=== PATIENT | male | born 1950 | race Caucasian/White ===

== ENCOUNTER 2017-11-23 14:33 | Inpatient (IN) | payer MEDICARE, OTHER, SELFPAY ==
[2017-11-23] VITALS (10 sets, daily range): BP systolic 102–139; BP diastolic 61–89; PULSE 76–100; RESP 17–29; TEMP 36.8–37.1; O2SAT 95–99
--- NOTE | 2017-11-23 14:46 | ED.GENADUL ---
Disposition Clinical Impression: Bacteremia Disposition: [facility] INPATIENT Condition: Serious Medical Decision Making - Medical Decision Making 15:08 --67-year-old male with history of ileostomy, seen here yesterday for chills and rigors that started suddenly, blood cultures growing gram negative rods in aerobic bottle. Patient is mildly tachycardic. Normotensive. Feeling better compared to yesterday. Afebrile. We will start Zosyn IV. Plan is to admit for IV antibiotics. I called and spoke with Dr. Macdonald who will admit the patient. Bridging orders requested and will be placed. Labs pending at time of admission. Of note CT imaging of the abdomen from yesterday reveals mild bilateral perinephric fat stranding new since 2013. UA neg yesterday. No dysuria. History of Present Illness - General Chief complaint: Fever Stated complaint: PR. DR. MOSHER REQUEST Time Seen by Provider: 11/23/17 14:45 Source: patient, RN notes reviewed Mode of arrival: ambulatory Limitations: no limitations - History of Present Illness Initial comments: 67-year-old male with history of ileostomy initially placed 19 years ago and has been subsequently revised here for positive blood cultures. Patient was seen here yesterday evening after becoming suddenly unwell at home. He notes that he was quite active during the day yesterday and then in the evening he suddenly developed shaking chills, nausea and diffuse body achiness. In the emergency department labs were drawn, blood cultures were drawn, he had a CT of the abdomen pelvis that was nondiagnostic, he received IV fluids and was feeling better and was discharged home. Today blood cultures are growing gram-negative rods aerobic bottle. I called and spoke with him and advised him to come to the emergency department. He notes that he has been feeling better compared to yesterday. Denies continued chills today. He has been using Tylenol. No associated headache or abdominal pain. No dysuria. - Related Data Ascorbic Acid 500 mg PO DAILY 09/02/12 Aspirin [Aspir 81] 81 mg PO DAILY tab-cap 09/02/12 Multivitamin [Daily Vitamin] 1 each PO DAILY 09/02/12 Tamsulosin HCl [Flomax] 0.4 mg PO DAILY tab 09/02/12 Tadalafil [Cialis] 10 mg PO as directed #30 tab-cap 09/04/12 Magnesium l-Lactate [Mag-Tab Sr] 133 mg PO BID 02/01/13 Sucralfate 1 gm PO PRN PRN 02/06/13 Aclidinium [place] [Tudorza Pressair] 2 puff IH BID 07/09/13 Acetaminophen [Tylenol] 1,000 mg PO PRN PRN 07/10/13 Loratadine/Pseudoephedrine [Claritin-D 24 Hour Tablet] 1 tab-cap PO PRN PRN 07/10/13 Magnesium Calcium And Zinc 133 mg PO DAILY 08/22/13 Potassium Chloride 10 meq PO DAILY #30 tablet.er 10/25/13 Magnesium Oxide 800 mg PO DAILY #60 tab 10/28/13 ClonazePAM [KlonoPIN] 2.5 mg PO HS 11/22/17 Ondansetron ODT [Zofran Odt] 4 mg PO Q6H PRN #10 tabef 11/23/17 Allergies Allergy/AdvReac Type Severity Reaction Status Date / Time ciprofloxacin HCl Allergy anxiety Unverified 11/23/17 14:42 [From Cipro] Sulfa (Sulfonamide AdvReac Mild gi upset Unverified 11/23/17 14:42 Antibiotics) Review of Systems Constitutional: fever (last night as noted) Gastrointestinal: denies: abdominal pain, nausea, vomiting Musculoskeletal: arthralgia (last night) Comment: All other systems reviewed and negative Past Medical History - Past Medical History Medical history: asthma, cancer (prostate), GERD, hyperlipidemia, hypertension Surgical history: herniorraphy, other (Colectomy with ileostomy, eye surgery) - Social History Smoking status: never smoker General Exam - General Limitations: no limitations General appearance: alert, in no apparent distress - Eye Eye exam: Absent: scleral icterus, conjunctival injection - ENT ENT exam: Present: mucous membranes moist - Respiratory Respiratory exam: Present: normal lung sounds bilaterally - Cardiovascular Cardiovascular Exam: Present: regular rate, normal rhythm, normal heart sounds - GI/Abdominal GI/Abdominal exam: Present: soft, normal bowel sounds, other (Ostomy intact and normal appearing). Absent: distended, tenderness, guarding, rebound, rigid - Extremities Exam Extremities exam: Absent: pedal edema - Neurological Exam Neurological exam: Present: alert. Absent: altered - Psychiatric Psychiatric exam: Present: normal affect - Skin Skin exam: Present: warm, dry, intact Course Vital Signs - 24 hr 11/23/17 14:37 Temperature 37.1 C Pulse 100 H Respiratory 18 Rate Blood Pressure 104/61 Pulse Oximetry 96
[2017-11-23 15:33] LABS: Abs Immature Grans 0.17 k/cumm (0.0-0.09); HCT 37.7 % (40.0-50.0); HGB 13.1 g/dL (13.5-17.5); Mean Corp. HGB Concentration 34.7 g/dL (32.0-36.0); Mean Corpuscular Hemoglobin 31.3 pg (27.0-33.0); Mean Platelet Volume 9.6 fL (8.0-11.0); Platelet Count 181 x1000/uL (130-400); RBC 4.19 m/cumm (4.50-6.00); RBC Distribution Width 15.9 % (11.8-14.1)
[2017-11-23 15:48] LABS: Absolute Eosinophil Count 0.27 k/cumm (0.0-0.7); Absolute Monocyte Count 0.27 k/cumm (0.11-0.7); Absolute Neutrophil Count 25.11 k/cumm (1.2-6.7); Atypical Lymphocytes % 0
[2017-11-23 15:49] LABS: White Blood Cell Count 26.71 k/cumm (4.4-10.8)
[2017-11-23 16:00] LABS: ALT 77 U/L (12-78); AST 63 U/L (15-37); Albumin 3.1 g/dL (3.4-5.0); Alkaline Phosphatase 76 U/L (46-116); Anion Gap 9.1 mmol/L (3-11); BUN 30 mg/dL (7-18); Bilirubin, Total 1.2 mg/dL (0.2-1.0); CO2 24.9 mmol/L (21.0-32.0); CREATININE 1.77 mg/dL (0.70-1.30); Calcium 8.8 mg/dL (8.5-10.1); Chloride 103 mmol/L (98-107); Estimated GFR 38.45 (mL/min/1.73m2); Glucose 108 mg/dL (70-100); Potassium 3.9 mmol/L (3.5-5.1); Sodium 137 mmol/L (136-145); Total Protein 6.6 g/dL (6.4-8.2)
[2017-11-23] MEDS: Lactated Ringers 1,000 ML 100 ML IV (17:27)
[2017-11-23] MEDS: Electrolyte SOLUTION,ORAL 1000 ML BTL 480 ML PO (17:50)
[2017-11-23] MEDS: Enoxaparin 30 MG/0.3 ML SYR SC (17:51)
--- NOTE | 2017-11-23 17:58 | PDOC.HP ---
Date of Service: 11/23/17 Time of Service: 17:58 Assessment/Plan - Assessment/Plan (1) Gram-negative bacteremia Assessment: Blood cultures positive for gram-negative rods from the aerobic bottle. At this point it seems to be a gastrointestinal source based on his history of ileostomy, recent exertion, and in the setting of a normal urine. The perinephric stranding is not explained at this time. Plan is empiric therapy with piperacillin/tazobactam directed toward possible enteric pathogens. Given his history of C. difficile colitis, and per patient preference will cover with probiotics. (2) Ileostomy status Assessment: Functioning ileostomy. Appears normal. Continue usual care. (3) Hypomagnesemia Assessment: Continue magnesium replacement. Check level in the a.m. (4) low potassium Assessment: Chronically low potassium levels likely secondary to continuous liquid stool output. Patient takes potassium replacement and Pedialyte on a regular basis. Monitor levels closely. (5) Renal insufficiency Assessment: Creatinine elevated at 1.77. Possibly on the basis of some dehydration. Will have on IV fluids overnight and monitor electrolytes and renal function closely. (6) Discharge planning issues Assessment: Patient is a full code admitted to acute care status. He will need to have his temperature curve monitored closely. Intravenous antibiotics until leukocytosis resolves, fever curve normalizes. Total time arranging his admission 64 minutes. Cc: Dr. Jacobo Burnett. History of Present Illness - History of Present Illness Chief Complaint: Gram-negative bacteremia History of Present Illness: This is a 67-year-old man who was in his usual state of health yesterday when he had a fairly active days physically. In the evening he suddenly developed shaking chills fever and rigors. He self-referred to the emergency room. He was evaluated by Dr. Stewart. He had a temperature of 102?F, white count of 5000, benign exam. He had a CT scan of the abdomen that showed no abnormality. Blood cultures were obtained. Overnight blood cultures turned positive for gram-negative rods. He was called at home stated he felt fine but agreed to come in for IV antibiotics. Today his white count is elevated at 26.7 thousand with 11% bands. Vital signs are stable he is afebrile and states he feels fine. He had an ileostomy placed about 19 years ago as a complication of C. difficile colitis. He had a small bowel obstruction in September 2013. He denies any urinary symptoms. Review of Systems - Review of Systems Constitutional: Fever (Last night), Chills (Last night), Sweats Respiratory: denies: Cough, Shortness of Breath, SOB with Excertion Cardiovascular: denies: Chest Pain, Palpitations Gastrointestinal: denies: Nausea, Vomiting, Abdominal Pain Genitourinary: denies: Dysuria, Frequency, Incontinence Musculoskeletal: denies: Neck Pain Skin: denies: Rash, Lesions Neurological: denies: Weakness - Medications/Allergies Allergies/Adverse Reactions: Allergies Allergy/AdvReac Type Severity Reaction Status Date / Time ciprofloxacin HCl Allergy anxiety Unverified 11/23/17 14:42 [From Cipro] Sulfa (Sulfonamide AdvReac Mild gi upset Unverified 11/23/17 14:42 Antibiotics) Medications: Current Medications Acetaminophen (Tylenol) 650 mg [place] Q4H PRN PRN Acetaminophen (Tylenol) 0 mg PO Q4H PRN PRN Acidophilus/Pectin (Acidophilus) 1 cap PO BID [facility] Aclidinium [place] (Tudorza Pressair) 2 puff IH BID [facility] Al Hydrox/Mg Hydrox/Simethicone (Mylanta Liquid) 30 ml PO Q2H PRN PRN Albuterol Sulfate (Proventil Updraft) 2.5 mg UPD Q2H PRN PRN Aspirin (Ecotrin) 81 mg PO DAILY [facility] Dimethicone/Zinc Oxide (Claudia Protect Cream) 0 gm TP PRN PRN Docusate Sodium (Colace) 100 mg PO TID PRN PRN Enoxaparin Sodium (Lovenox) 30 mg SC Q24H [facility] Last Admin: 11/23/17 17:51 Dose: 30 mg Ringer's Solution () 1,000 mls @ 100 mls/hr IV INFUSION [facility] Last Admin: 11/23/17 17:27 Dose: 100 mls/hr Piperacillin Sod/Tazobactam (Sod 3.375 gm/ Sodium Chloride) 50 mls @ 100 mls/hr IVPB Q6H [facility] IV Miscellaneous Supplies () 1 each IV DIRECTED [facility] Magnesium Hydroxide (Milk Of Magnesia) 30 ml PO DAILY PRN PRN Magnesium Oxide (Mag-Ox 400) 800 mg PO DAILY [facility] Non-Formulary Medication (Clonazepam) 2.5 mg PO HS [facility] Ondansetron HCl (Zofran Odt) 4 mg PO Q6H PRN PRN Reason: Nausea / Vomiting Oral Electrolytes (Pedialyte) 480 ml PO BID@0800,1700 [facility] Last Admin: 11/23/17 17:50 Dose: 480 ml Polyethylene Glycol (Miralax) 17 gm PO DAILY PRN PRN PRN Reason: Constipation Potassium Chloride (K-Dur) 10 meq PO DAILY [facility] Sodium Chloride (Saline Flush 10 Ml Syringe) 0 ml IVP PRN PRN Tamsulosin HCl (Flomax) 0.4 mg PO DAILY [facility] Objective - Exam Vitals and I&O: Vital Signs Temp 37.0 C 11/23/17 16:04 Pulse 83 11/23/17 16:04 Resp 17 11/23/17 16:04 BP 139/89 11/23/17 16:04 Pulse Ox 99 11/23/17 16:04 Intake & Output 11/22/17 11/23/17 11/23/17 23:59 11:59 23:59 Weight 69.4 kg General: Alert, Oriented x3, Cooperative, No acute distress Neck: Supple. denies: JVD Lungs: Clear to auscultation, Normal air movement Cardiovascular: Regular rate, Normal S1. denies: Murmurs Abdomen: Normal bowel sounds, Soft, Other (Ileostomy site pink, normal brown appearing liquid discharge, no surrounding swelling or abnormality). denies: Tenderness Extremities: Normal pulses. denies: Clubbing, Cyanosis, Edema Skin: denies: Rashes, Breakdown, Significant lesion Neurological: Normal speech, Strength at 5/5 X4 ext Psych/Mental Status: Mental status NL Results - Laboratory Data Result Diagrams: 11/23/17 15:15 11/23/17 15:15 Laboratory Results: Laboratory Tests 11/23/17 11/23/17 15:15 15:15 WBC 26.71 H* D RBC 4.19 L Hgb 13.1 L Hct 37.7 L MCV 90.0 MCH 31.3 MCHC 34.7 RDW 15.9 H Plt Count 181 MPV 9.6 Immature Gran % 0.0 Neutrophils % 83.0 Lymphocytes % 3.0 Monocytes % 1.0 Eosinophils % 1.0 Basophils % 0.0 Absolute Neutrophils 25.11 H Band Neutrophils 11.0 Absolute Lymphocytes 0.80 L Absolute Monocytes 0.27 Absolute Eosinophils 0.27 Absolute Basophils 0.00 Metamyelocytes 1.0 Atypical Lymphocytes 0 Sodium 137 Potassium 3.9 Chloride 103 Carbon Dioxide 24.9 Anion Gap 9.1 BUN 30 H Creatinine 1.77 H Estimated GFR/1.73 m2 38.45 Glucose 108 H Calcium 8.8 Total Bilirubin 1.2 H AST 63 H ALT 77 Alkaline Phosphatase 76 Total Protein 6.6 Albumin 3.1 L - Imaging Studies Imaging Studies: CT of the abdomen showed some perinephric stranding otherwise normal. Chest x-ray showed no infiltrate or abnormality. Urinalysis completely normal.
--- NOTE | 2017-11-23 18:01 | PDOC.HP_ITS ---
Date of Service: 11/23/17 Time of Service: 17:58 Assessment/Plan - Assessment/Plan (1) Gram-negative bacteremia Assessment: Blood cultures positive for gram-negative rods from the aerobic bottle. At this point it seems to be a gastrointestinal source based on his history of ileostomy, recent exertion, and in the setting of a normal urine. The perinephric stranding is not explained at this time. Plan is empiric therapy with piperacillin/tazobactam directed toward possible enteric pathogens. Given his history of C. difficile colitis, and per patient preference will cover with probiotics. (2) Ileostomy status Assessment: Functioning ileostomy. Appears normal. Continue usual care. (3) Hypomagnesemia Assessment: Continue magnesium replacement. Check level in the a.m. (4) low potassium Assessment: Chronically low potassium levels likely secondary to continuous liquid stool output. Patient takes potassium replacement and Pedialyte on a regular basis. Monitor levels closely. (5) Renal insufficiency Assessment: Creatinine elevated at 1.77. Possibly on the basis of some dehydration. Will have on IV fluids overnight and monitor electrolytes and renal function closely. (6) Discharge planning issues Assessment: Patient is a full code admitted to acute care status. He will need to have his temperature curve monitored closely. Intravenous antibiotics until leukocytosis resolves, fever curve normalizes. Total time arranging his admission 64 minutes. Cc: Dr. Jacobo Burnett. History of Present Illness - History of Present Illness Chief Complaint: Gram-negative bacteremia History of Present Illness: This is a 67-year-old man who was in his usual state of health yesterday when he had a fairly active days physically. In the evening he suddenly developed shaking chills fever and rigors. He self-referred to the emergency room. He was evaluated by Dr. Stewart. He had a temperature of 102 F, white count of 5000 , benign exam. He had a CT scan of the abdomen that showed no abnormality. Blood cultures were obtained. Overnight blood cultures turned positive for gram-negative rods. He was called at home stated he felt fine but agreed to come in for IV antibiotics. Today his white count is elevated at 26.7 thousand with 11% bands. Vital signs are stable he is afebrile and states he feels fine. He had an ileostomy placed about 19 years ago as a complication of C. difficile colitis. He had a small bowel obstruction in September 2013. He denies any urinary symptoms. Review of Systems - Review of Systems Constitutional: Fever (Last night), Chills (Last night), Sweats Respiratory: denies: Cough, Shortness of Breath, SOB with Excertion Cardiovascular: denies: Chest Pain, Palpitations Gastrointestinal: denies: Nausea, Vomiting, Abdominal Pain Genitourinary: denies: Dysuria, Frequency, Incontinence Musculoskeletal: denies: Neck Pain Skin: denies: Rash, Lesions Neurological: denies: Weakness - Medications/Allergies Allergies/Adverse Reactions: Allergies Allergy/AdvReac Type Severity Reaction Status Date / Time ciprofloxacin HCl Allergy anxiety Unverified 11/23/17 14:42 [From Cipro] Sulfa (Sulfonamide AdvReac Mild gi upset Unverified 11/23/17 14:42 Antibiotics) Medications: Current Medications Acetaminophen (Tylenol) 650 mg [place] Q4H PRN PRN Acetaminophen (Tylenol) 0 mg PO Q4H PRN PRN Acidophilus/Pectin (Acidophilus) 1 cap PO BID [facility] Aclidinium [place] (Tudorza Pressair) 2 puff IH BID [facility] Al Hydrox/Mg Hydrox/Simethicone (Mylanta Liquid) 30 ml PO Q2H PRN PRN Albuterol Sulfate (Proventil Updraft) 2.5 mg UPD Q2H PRN PRN Aspirin (Ecotrin) 81 mg PO DAILY [facility] Dimethicone/Zinc Oxide (Claudia Protect Cream) 0 gm TP PRN PRN Docusate Sodium (Colace) 100 mg PO TID PRN PRN Enoxaparin Sodium (Lovenox) 30 mg SC Q24H [facility] Last Admin: 11/23/17 17:51 Dose: 30 mg Ringer's Solution () 1,000 mls @ 100 mls/hr IV INFUSION [facility] Last Admin: 11/23/17 17:27 Dose: 100 mls/hr Piperacillin Sod/Tazobactam (Sod 3.375 gm/ Sodium Chloride) 50 mls @ 100 mls/ hr IVPB Q6H [facility] IV Miscellaneous Supplies () 1 each IV DIRECTED [facility] Magnesium Hydroxide (Milk Of Magnesia) 30 ml PO DAILY PRN PRN Magnesium Oxide (Mag-Ox 400) 800 mg PO DAILY [facility] Non-Formulary Medication (Clonazepam) 2.5 mg PO HS [facility] Ondansetron HCl (Zofran Odt) 4 mg PO Q6H PRN PRN Reason: Nausea / Vomiting Oral Electrolytes (Pedialyte) 480 ml PO BID@0800,1700 [facility] Last Admin: 11/23/17 17:50 Dose: 480 ml Polyethylene Glycol (Miralax) 17 gm PO DAILY PRN PRN PRN Reason: Constipation Potassium Chloride (K-Dur) 10 meq PO DAILY [facility] Sodium Chloride (Saline Flush 10 Ml Syringe) 0 ml IVP PRN PRN Tamsulosin HCl (Flomax) 0.4 mg PO DAILY [facility] Objective - Exam Vitals and I&O: Vital Signs Temp 37.0 C 11/23/17 16:04 Pulse 83 11/23/17 16:04 Resp 17 11/23/17 16:04 BP 139/89 11/23/17 16:04 Pulse Ox 99 11/23/17 16:04 Intake & Output 11/22/17 11/23/17 11/23/17 23:59 11:59 23:59 Weight 69.4 kg General: Alert, Oriented x3, Cooperative, No acute distress Neck: Supple. denies: JVD Lungs: Clear to auscultation, Normal air movement Cardiovascular: Regular rate, Normal S1. denies: Murmurs Abdomen: Normal bowel sounds, Soft, Other (Ileostomy site pink, normal brown appearing liquid discharge, no surrounding swelling or abnormality). denies: Tenderness Extremities: Normal pulses. denies: Clubbing, Cyanosis, Edema Skin: denies: Rashes, Breakdown, Significant lesion Neurological: Normal speech, Strength at 5/5 X4 ext Psych/Mental Status: Mental status NL Results - Laboratory Data Result Diagrams: 11/23/17 15:15 11/23/17 15:15 Laboratory Results: Laboratory Tests 11/23/17 11/23/17 15:15 15:15 WBC 26.71 H* D RBC 4.19 L Hgb 13.1 L Hct 37.7 L MCV 90.0 MCH 31.3 MCHC 34.7 RDW 15.9 H Plt Count 181 MPV 9.6 Immature Gran % 0.0 Neutrophils % 83.0 Lymphocytes % 3.0 Monocytes % 1.0 Eosinophils % 1.0 Basophils % 0.0 Absolute Neutrophils 25.11 H Band Neutrophils 11.0 Absolute Lymphocytes 0.80 L Absolute Monocytes 0.27 Absolute Eosinophils 0.27 Absolute Basophils 0.00 Metamyelocytes 1.0 Atypical Lymphocytes 0 Sodium 137 Potassium 3.9 Chloride 103 Carbon Dioxide 24.9 Anion Gap 9.1 BUN 30 H Creatinine 1.77 H Estimated GFR/1.73 m2 38.45 Glucose 108 H Calcium 8.8 Total Bilirubin 1.2 H AST 63 H ALT 77 Alkaline Phosphatase 76 Total Protein 6.6 Albumin 3.1 L - Imaging Studies Imaging Studies: CT of the abdomen showed some perinephric stranding otherwise normal. Chest x-ray showed no infiltrate or abnormality. Urinalysis completely normal.
[2017-11-23] MEDS: Potassium Chloride 10 MEQ TABCR PO (19:56)
[2017-11-23] MEDS: Lactobacillus Acidophilus CAP 1 CAP PO (19:56)
[2017-11-23] MEDS: Magnesium Oxide 400 MG TAB 600 MG PO (19:56)
[2017-11-23] MEDS: Normal Saline Flush 10 ML SYR IVP (20:20)
[2017-11-23] MEDS: clonazePAM 1 MG TAB 2.5 MG PO (21:16)
[2017-11-23] MEDS: Acetaminophen 325 MG TAB PO (21:18)
[2017-11-24] VITALS: BP 101/64; PULSE 69; RESP 19; TEMP 36.2; O2SAT 100
[2017-11-24] MEDS: Lactated Ringers 1,000 ML 100 ML IV ×2 (03:55→14:17)
[2017-11-24] MEDS: Acetaminophen 650 MG SUPP PR (03:56)
[2017-11-24 04:06] VITALS: BP 99/65; PULSE 59; RESP 18; TEMP 36.7; O2SAT 96
[2017-11-24 07:10] LABS: Abs Immature Grans 0.05 k/cumm (0.0-0.09); Absolute Eosinophil Count 0.88 k/cumm (0.0-0.7); Absolute Monocyte Count 0.94 k/cumm (0.11-0.7); Basophils % 0.4; Eosinophils % 5.2; HCT 37.7 % (40.0-50.0); HGB 12.7 g/dL (13.5-17.5); Immature Grans % 0.3; Lymphocytes % 3.6; Mean Corp. HGB Concentration 33.7 g/dL (32.0-36.0); Mean Corpuscular Hemoglobin 30.9 pg (27.0-33.0); Mean Corpuscular Volume 91.7 fL (80-95); Mean Platelet Volume 9.5 fL (8.0-11.0); Monocytes % 5.6; Neutrophils % 84.9; Platelet Count 176 x1000/uL (130-400); RBC 4.11 m/cumm (4.50-6.00); RBC Distribution Width 16.4 % (11.8-14.1); White Blood Cell Count 16.83 k/cumm (4.4-10.8)
[2017-11-24 07:14] LABS: Absolute Basophil Count 0.07 k/cumm (0.0-0.2); Absolute Lymphocyte Count 0.61 k/cumm (1.2-3.4); Absolute Neutrophil Count 14.29 k/cumm (1.2-6.7)
[2017-11-24 07:15] VITALS: BP 108/72; PULSE 60; RESP 18; TEMP 36.1; O2SAT 97
[2017-11-24 07:26] LABS: Anion Gap 5.2 mmol/L (3-11); BUN 24 mg/dL (7-18); CO2 29.8 mmol/L (21.0-32.0); CREATININE 2.01 mg/dL (0.70-1.30); Chloride 105 mmol/L (98-107); Glucose 81 mg/dL (70-100); Magnesium 1.9 mg/dL (1.8-2.4); Potassium 3.9 mmol/L (3.5-5.1); Sodium 140 mmol/L (136-145)
[2017-11-24] MEDS: Electrolyte SOLUTION,ORAL 1000 ML BTL 480 ML PO ×2 (08:32→17:35)
[2017-11-24] MEDS: Magnesium Oxide 400 MG TAB 600 MG PO ×2 (08:33→19:44)
[2017-11-24] MEDS: Lactobacillus Acidophilus CAP 1 CAP PO ×2 (08:33→19:43)
[2017-11-24] MEDS: Tamsulosin 0.4 MG CAPCR PO (08:33)
[2017-11-24] MEDS: Aspirin E.C. 81 MG TABEC PO (08:33)
--- NOTE | 2017-11-24 11:52 | PDOC.CMIN ---
Care Management Initial Assess REASON FOR HOSPITALIZATION:: Bacteremia PAST MEDICAL HISTORY/PAST SURGICAL HISTORY:: Medical: Detached retina, enteritis, hypertension, hyperlipidemia, asthma, peptic acid disease with ulcerative colitis, GERD. chronic amxiety, migraine headaches, prosate cancer. Surgical: Bilateral Cataract Surgery, colectomy with ileostomy, g-tube placement, Exp Lap, lysis of adhesions PREVIOUS FUNCTIONAL STATUS/SOCIAL/FAMILY SUPPORTS:: Lives with his , Darlin, at their home in [place]. CURRENT FUNCTIONAL STATUS:: Sitting up in his recliner visiting with his . Just headed out to complete another loop around the unit. States he feels much better. Normally independent and his is very supportive. ADVANCE DIRECTIVES:: None on file Has patient been provided with information about the portal?: Yes Did the patient sign up for the portal?: No CODE STATUS:: Full Code INSURANCE COVERAGE / FINANCIAL ISSUES:: Medicare. [employer] CURRENT HOME/COMMUNITY SERVICES/EQUIPMENT:: None at this time PRIMARY CARE PHYSICIAN:: Jacobo Burnett MD POTENTIAL DISCHARGE NEEDS:: None identified at this time PATIENT/FAMILY EDUCATION NEEDS:: Discharge instructions ANTICIPATED BARRIERS TO DISCHARGE:: None identified TRANSPORTATION:: Private car PLAN:: Return home when medially cleared for discharge. No services needed at this time. , Darlin, will transport by car. Readmission - Within the Past 30 Days Yes or No: N
[2017-11-24 12:35] VITALS: BP 103/67; PULSE 67; RESP 18; TEMP 36.9; O2SAT 98
--- NOTE | 2017-11-24 13:05 | PHARADMIT ---
Admission Pharmacy Clinical Review BACTERMEMIA Code Status Full Code Current Weight 73.6 kg Renally Cleared and Narrow Therapeutic Index Meds CRCL~28ML/MIN QTc Value / Action Taken NA BP Control, Fever 103/67 AFEBRILE Electrolytes reviewed OK DVT Prophylaxis ENOXPARIN SWITCHED TO HEPARIN SUBQ Opiate Usage / Scheduled Bowel Regimen Ordered NO/PRN Plt/SCr for Heparin / Enoxaparin 176/2.01 INR for Warfarin NA H/H stable, WBC/Bands 12.7/37.7 WBC 16.83 Antibiotic appropriateness PIP/TAZO RENALLY DOSED Cultures and Sensitivities BC PENDING Surgical ABX d/c within 24 hr NA DM control / Insulin Dosing NA Heart Failure (Check EF%) (SUNNY's, B-Block, Diuretics) NA IV to PO Switch Home Meds Reviewed Home Meds Not Ordered Ascorbic Acid 500 mg PO DAILY 09/02/12 Multivitamin [Daily Vitamin] 1 each PO DAILY 09/02/12 Magnesium l-Lactate [Mag-Tab Sr] 133 mg PO BID 02/01/13 Loratadine/Pseudoephedrine [Claritin-D 24 Hour Tablet] Magnesium Calcium And Zinc 133 mg PO DAILY 08/22/13 Tadalafil [Cialis] 10 mg PO as directed #30 tab-cap 09/04/12 Comments
--- NOTE | 2017-11-24 13:34 | DI.REPORT_ITS ---
SYMPTOM/DIAGNOSIS: VILMA, BACTEREMIA, PERINEPHRIC STRANDING ON CT RENAL ULTRASOUND: Comparison is made with noncontrast CT dated 11/22/17. The kidneys are normal in size and show normal parenchymal thickness and echogenicity. No perinephric collections, hydronephrosis or calcifications are seen. There is an 8 mm. cyst at the upper pole of the left kidney. The prostate is not well seen. Metallic seeds were noted on prior CT. The urinary bladder prevoid volume measured 211 cc's. There is a 33 cc postvoid residual. Both ureteral jets were visualized. IMPRESSION: Unremarkable kidneys. No evidence of hydronephrosis or perinephric collection. Mildly elevated postvoid residual.
[2017-11-24] MEDS: Acetaminophen 325 MG TAB PO (13:45)
--- NOTE | 2017-11-24 14:03 | DI.VRAD_ITS ---
EXAM: US Retroperitoneal Complete EXAM DATE/TIME: 11/24/2017 11:50 AM CLINICAL HISTORY: 67 years old, male; Signs and symptoms; Other: [place], bacteremia, stranding on CT 11/22/17 TECHNIQUE: Real-time ultrasound of the retroperitoneum (complete) with image documentation. COMPARISON: CT - ABD PELVIS WO CONTRAST 2017-11-22 23:32 FINDINGS: Aorta: No aneurysm. Common iliac arteries: No aneurysm. Inferior vena cava: Unremarkable. Right kidney: Unremarkable. No stones. No solid mass. No hydronephrosis. Left kidney: Anechoic exophytic focus left renal upper pole consistent with cysts, 8 mm. No stones. No hydronephrosis. Bladder: Prevoid bladder volume 210.5 cc. Other findings: There is a small hiatal hernia. Prostate not well seen but not significantly enlarged. Volume is 50 cc. IMPRESSION: No evidence for acute abnormality. Preliminary interpretation is based on receipt of 63 image(s). A final report will be issued subsequently. We appreciate the opportunity to be involved in this patient's care. Dictated and Authenticated by: Cheyenne Garcia MD. Ordering:MATT WALL MD
--- NOTE | 2017-11-24 15:40 | INITIAL_ITS ---
Care Management Initial Assess REASON FOR HOSPITALIZATION:: Bacteremia PAST MEDICAL HISTORY/PAST SURGICAL HISTORY:: Medical: Detached retina, enteritis , hypertension, hyperlipidemia, asthma, peptic acid disease with ulcerative colitis, GERD. chronic amxiety, migraine headaches, prosate cancer. Surgical: Bilateral Cataract Surgery, colectomy with ileostomy, g-tube placement, Exp Lap , lysis of adhesions PREVIOUS FUNCTIONAL STATUS/SOCIAL/FAMILY SUPPORTS:: Lives with his , Darlin , at their home in [place]. CURRENT FUNCTIONAL STATUS:: Sitting up in his recliner visiting with his . Just headed out to complete another loop around the unit. States he feels much better. Normally independent and his is very supportive. ADVANCE DIRECTIVES:: None on file Has patient been provided with information about the portal?: Yes Did the patient sign up for the portal?: No CODE STATUS:: Full Code INSURANCE COVERAGE / FINANCIAL ISSUES:: Medicare. [employer] CURRENT HOME/COMMUNITY SERVICES/EQUIPMENT:: None at this time PRIMARY CARE PHYSICIAN:: Jacobo Burnett MD POTENTIAL DISCHARGE NEEDS:: None identified at this time PATIENT/FAMILY EDUCATION NEEDS:: Discharge instructions ANTICIPATED BARRIERS TO DISCHARGE:: None identified TRANSPORTATION:: Private car PLAN:: Return home when medially cleared for discharge. No services needed at this time. , Darlin, will transport by car. Readmission - Within the Past 30 Days Yes or No: N
[2017-11-24 15:58] VITALS: BP 134/79; PULSE 57; RESP 18; TEMP 36.5; O2SAT 95
[2017-11-24] MEDS: Heparin 5,000 UNITS/ML VIAL 5000 UNITS SC (17:35)
[2017-11-24 19:39] VITALS: BP 116/76; PULSE 71; RESP 18; TEMP 37; O2SAT 99
[2017-11-24] MEDS: Normal Saline 500 ML 100 ML IV (19:43)
[2017-11-24] MEDS: clonazePAM 1 MG TAB 2.5 MG PO (21:04)
[2017-11-25 00:13] VITALS: BP 128/85; PULSE 69; RESP 18; TEMP 35.9; O2SAT 93
[2017-11-25] MEDS: Normal Saline 500 ML 100 ML IV (03:07)
[2017-11-25] MEDS: Heparin 5,000 UNITS/ML VIAL 5000 UNITS SC ×3 (03:08→19:22)
[2017-11-25 03:32] VITALS: BP 152/82; PULSE 68; RESP 16; TEMP 36.8; O2SAT 99
[2017-11-25] MEDS: Acetaminophen 325 MG TAB PO (04:13)
[2017-11-25 06:09] LABS: Abs Immature Grans 0.02 k/cumm (0.0-0.09); Absolute Basophil Count 0.06 k/cumm (0.0-0.2); Absolute Eosinophil Count 1.01 k/cumm (0.0-0.7); Absolute Lymphocyte Count 0.85 k/cumm (1.2-3.4); Absolute Monocyte Count 1.11 k/cumm (0.11-0.7); Basophils % 0.6; Eosinophils % 10.1; HCT 36.1 % (40.0-50.0); HGB 12.3 g/dL (13.5-17.5); Immature Grans % 0.2; Lymphocytes % 8.5; Mean Corp. HGB Concentration 34.1 g/dL (32.0-36.0); Mean Corpuscular Hemoglobin 31.1 pg (27.0-33.0); Mean Corpuscular Volume 91.4 fL (80-95); Mean Platelet Volume 9.9 fL (8.0-11.0); Monocytes % 11.1; Neutrophils % 69.5; Platelet Count 170 x1000/uL (130-400); RBC 3.95 m/cumm (4.50-6.00); RBC Distribution Width 15.8 % (11.8-14.1); White Blood Cell Count 10.02 k/cumm (4.4-10.8)
[2017-11-25 06:17] LABS: Absolute Neutrophil Count 6.96 k/cumm (1.2-6.7)
[2017-11-25 06:19] LABS: Anion Gap 7.3 mmol/L (3-11); BUN 19 mg/dL (7-18); CO2 27.7 mmol/L (21.0-32.0); Calcium 9.3 mg/dL (8.5-10.1); Chloride 105 mmol/L (98-107); Estimated GFR 35.43 (mL/min/1.73m2); Glucose 86 mg/dL (70-100); Sodium 140 mmol/L (136-145)
[2017-11-25 06:58] LABS: Anisocytosis 1+; Diff Comment Agrees w/ Instrument
[2017-11-25 07:50] VITALS: BP 126/79; PULSE 63; RESP 20; TEMP 36.1; O2SAT 99
[2017-11-25] MEDS: Magnesium Oxide 400 MG TAB 600 MG PO ×2 (08:14→19:22)
[2017-11-25] MEDS: Lactobacillus Acidophilus CAP 1 CAP PO ×2 (08:14→19:22)
[2017-11-25] MEDS: Aspirin E.C. 81 MG TABEC PO (08:14)
[2017-11-25] MEDS: Tamsulosin 0.4 MG CAPCR PO (08:15)
[2017-11-25] MEDS: Electrolyte SOLUTION,ORAL 1000 ML BTL 480 ML PO ×2 (08:16→16:58)
--- NOTE | 2017-11-25 09:33 | PGE_ITS ---
PROGRESS NOTE DATE OF SERVICE November 24, 2017 at 2:31 p.m. ASSESSMENT AND PLAN 1. E-coli bacteremia. The patient with evidence of E-coli bacteremia with unknown source. Urinalysi s was obtained the day prior to admission at the time of his initial evaluation, showing negative for leukocyte esterase and nitrate, with no bacteria and no white blood cells on microscopy. Chest x-ray was negative and CT of the abdomen and pelvis that was obtained without contrast, showed evidence for potential mild perinephric stranding. Discussed the case with ID and although the source is not quite apparent, GI and sources are the l ikely etiology for the patient's E-coli bacteremia. As the patient has an acute kidney injury, a repeat CAT scan with IV contrast is contraindicated. A renal ultrasound was obtained, it did not show any obvious pathology. Given the patient's allergy to Cipro, the plan currently is to continue Zosyn, day #2 and renally dos ed, until sensitivities are available prior to the determination of exact course of antibiotic therap y. Continue to monitor culture results. 2. Acute kidney injury. Evidence of acute renal insufficiency in the setting of infection and dehydr ation, although with potential mild perinephric stranding as well. An ultrasound of kidneys was perfo rmed and interpreted as without any evidence of acute abnormality. Continue to monitor renal function. Avoid nephrotoxins. Renally-dosed medications when appropriate. 3. Abnormal imaging of a kidney. The patient with potential evidence for less than 1-cm right sided renal cortical lesion at the medial upper lobe, with recommendations for renal ultrasound to exclude a solid mass. Renal ultrasound was performed, and was unremarkable for stone or mass, or hydronephros is of the right kidney, but did show an exophytic focus in the left upper pole consistent with a cyst at 8 mm. No evidence of hydronephrosis on the left side either. Will review findings with Radiology once able. 4. Chronic obstructive pulmonary disease. Continue home inhaler LAMA, and p.r.n. Albuterol. 5. Prophylaxis. Subcutaneous heparin. SUBJECTIVE A 67-year-old man with past medical history significant for COPD, prostate CA, and prior ileostomy in the setting of either acute diverticulitis or C. diff infection, admitted on 11/23/2017 due to positiv e blood cultures. Mr. Abel had a sudden onset of shaking, fevers and chills at home, and sought care in the Emergency Department on the day prior to his admission. He was initially evaluated and found to be febrile, b ut with a normal white blood count and fairly benign exam. CT scan of the abdomen and pelvis showed mild bilateral perinephric fat stranding that appeared new since 2013, otherwise no evidence of acute inflammatory process. At that time, the patient had blood cultures drawn and he was discharged home. Overnight and the next day, Mr. Abel felt significantly improved, but his blood cultures returned p ositive for Gram-negative rods and he was called at home and asked to come in for evaluation. His re peat blood count showed a significant leukocytosis with a white count of 26.7 with 11% bands. He was admitted for further evaluation and treatment. PHYSICAL EXAMINATION GENERAL - The patient appears quite comfortable sitting out of bed in chair. No acute distress noted. VITAL SIGNS - Temperature 36.9 and afebrile. Blood pressure 103/67 with a systolic range between 99 and 139, mostly in the 100s. Heart rate 67 and not tachycardic. Pulse oximetry 98% on room air. NECK - Neck is supple. CARDIOVASCULAR - Regular, not tachycardic. PULMONARY - Mild left-sided basilar crackles that improved with deep inspiration and cough. ABDOMEN - Bowel sounds present, soft, nontender, nondistended. VASCULAR - No significant lower extremity edema noted. LABORATORY STUDIES Sodium 140, potassium 3.9, chloride 105, bicarb 29.8, BUN 24, creatinine 2.07 up from a value of 1.77 yesterday, with a baseline of 1.3 to 1.5. White blood count improved to 16.8 from 26.7 yesterday with 84% neutrophils, 3.6 lymphocytes, 5.6 mon ocytes, and 14% bands, down from 25 yesterday. Hemoglobin 12.7, platelet count 176. Blood cultures obtained 11/23/2017 pending, but blood cultures from 11/22/2017 showing Gram-negative rods in one set, speciated to E-coli. STUDIES 1. Renal ultrasound 11/24/2017 with no evidence of acute abnormality. 2. CT of the abdomen and pelvis obtained 11/22/2017 with right lower quadrant ileostomy with parastoma l hernia containing nonobstructive small bowel. Mild bilateral perinephric fat stranding new since , consider inflammatory response. New less than 1-cm right renal cortical lesion at the medial uppe r lobe. Ultrasound suggested to exclude solid mass. 3. Chest x-ray obtained 11/22/2017 with no evidence of acute cardiopulmonary disease.
[2017-11-25 11:30] VITALS: BP 142/94; PULSE 60; RESP 20; TEMP 36.1; O2SAT 99
[2017-11-25] MEDS: Lactated Ringers 1,000 ML 100 ML IV ×2 (11:44→20:26)
--- NOTE | 2017-11-25 15:29 | PGE_ITS ---
DATE OF SERVICE: November 25, 2017 ASSESSMENT AND PLAN: #1. E. coli bacteremia. Patient with evidence of E. coli bacteremia with unknown source. Urinalysi s was obtained the day prior to his admission at the time of initial evaluation in the Emergency Depa rtment, showing negative for leukocyte esterase and nitrite with no bacteria and no white blood cells . Chest x-ray was also negative and a CT of the abdomen and pelvis, while showing mild perinephric s tranding, an ultrasound was checked and essentially normal. The case was discussed with Infectious Disease and although the source is not quite apparent, and GI sources are both possible in patient with a prior history of ileostomy. CT scanning with IV contr ast is recommended but contraindicated due to acute kidney injury. Will hold Zosyn and start renally-dosed levofloxacin by IV, and if the patient continues to do well w ill consider changing to oral formulation and discharge tomorrow. Will also discuss again with Infec tious Disease for recommendations of length of antibiotic course. #2. Acute kidney injury. Evidence of acute renal insufficiency in the setting of an infection and d ehydration, although with potential mild perinephric stranding on CT. However, an ultrasound of the kidneys was performed and interpreted as without any evidence of acute abnormality. Continue to monitor renal function, with creatinine appearing to be mildly improved today. Continue IV fluid hydration, and renally dose medications when applicable. #3. Abnormal imaging of kidney. Patient with potential evidence of a less than 1-cm right-sided janki al cortical lesion at the medial upper lobe, with recommendation for renal ultrasound to exclude a so lid mass. Renal ultrasound was performed and unremarkable for stone or mass or hydronephrosis of the right kidney, but did show an exophytic focus in the left upper lobe consistent with a cyst. No paty dence of hydronephrosis on the left side either. Will review these findings with Radiology once in-h ouse Radiology is back tomorrow. #4. COPD - appears quiescent. Continue home inhaler LAMA, and p.r.n. albuterol. #5. Prophylaxis - continue subcutaneous heparin. #6. Code status - FULL CODE. SUBJECTIVE: Jrdbe-vafzi-fkoc-old pleasant man with a past medical history significant for COPD, pros hathaway CA, and prior ileostomy in the setting of either acute diverticulitis or C. difficile infection admitted on 11/23/17 due to positive blood cultures. Mr. Abel had onset of fevers and rigors at home, seen here in the Emergency Department the day prio r to his admission. Initial evaluation found the patient to be febrile, but with a normal white bloo d count and fairly benign exam. CT scan of the abdomen and pelvis showed mild bilateral perinephric fat stranding that appeared new since 2013. At that time blood cultures were also drawn. The next day Mr. Abel's blood cultures returned positive, prompting a call back for reevaluation of the patient. Although he felt well, he was noted to have a significant elevation in his white blood count, and he was referred for admission. Since that time, his blood culture has speciated to E. coli, now appears to be resistant to penicilli n products but otherwise essentially pansensitive. His white count has also normalized today from an initial value of 26,000. He feels well. Unfortunately, his urinalysis at the time of initial evalu ation was negative, chest x-ray was without evidence of abnormality, and although the CT of the abdom en and pelvis showed potential mild perinephric stranding, no evidence of hydronephrosis or other abn ormality with the kidneys were noted by ultrasound. Today the patient very well. PHYSICAL EXAM: General: The patient appears quite comfortable sitting out of bed in chair. No acute distress noted . Vitals: Temperature 36.1 and afebrile. Blood pressure 142/94 with a range of 103-152 systolic. Hea rt rate 60. Pulse oximetry 99% on room air. Neck: Supple. CV: Regular, non-tachycardic. Pulm: Continued mild left-sided basilar crackle that does improve with deep inspiration and cough. Abdomen: Bowel sounds are present, soft, nontender, and nondistended. Vascular: No significant lower extremity edema noted. LABS: Normal sodium, potassium, bicarb, and chloride. BUN improved from an initial value of 30 to 1 9, and creatinine down slightly from a value of 2.01 yesterday to 1.9, but with a baseline value of 1 .3 to 1.5. White count now normalized at 10, down from 16.8 yesterday and 26.71 at the time of admission. Hemog lobin mildly low but stable at 12.3. Platelet count normal at 170,000. Differential with 69% neutro phils, 8.5 lymphocytes, 11.1 monocytes, no further bandemia noted.
[2017-11-25 17:20] VITALS: BP 130/79; PULSE 57; RESP 18; TEMP 37.3; O2SAT 94
--- NOTE | 2017-11-25 18:10 | PDOC.CMPRO ---
Care Management Progress Note S/O: Ambulating inthe hallway with his at his side. Cheerful and states he is feeling a little better today. A: 67 y.o. male admitted for Bacteremia P: Return home when medically cleared for discharge. No services indicated at this time. will transport by car.
[2017-11-25 20:19] VITALS: BP 125/80; PULSE 66; RESP 18; TEMP 36.5; O2SAT 98
[2017-11-25] MEDS: Normal Saline Flush 10 ML SYR IVP (20:26)
[2017-11-25] MEDS: Albuterol HFA 8 GM 60 PUFF INH IH (20:30)
[2017-11-25] MEDS: clonazePAM 0.5 MG TAB PO (21:50)
[2017-11-26 00:19] VITALS: BP 144/81; PULSE 67; RESP 18; TEMP 36.1; O2SAT 98
[2017-11-26] MEDS: clonazePAM 0.5 MG TAB (00:21)
[2017-11-26] MEDS: Heparin 5,000 UNITS/ML VIAL 5000 UNITS SC ×3 (02:43→17:07)
[2017-11-26] MEDS: Acetaminophen 325 MG TAB PO ×3 (02:51→21:19)
[2017-11-26 03:50] VITALS: BP 132/82; PULSE 66; RESP 16; TEMP 36.2; O2SAT 96
[2017-11-26] MEDS: Lactated Ringers 1,000 ML 100 ML IV (06:53)
[2017-11-26 07:21] LABS: Abs Immature Grans 0.07 k/cumm (0.0-0.09); Absolute Basophil Count 0.04 k/cumm (0.0-0.2); Absolute Lymphocyte Count 0.97 k/cumm (1.2-3.4); Absolute Monocyte Count 1.01 k/cumm (0.11-0.7); Absolute Neutrophil Count 3.97 k/cumm (1.2-6.7); Basophils % 0.6; Eosinophils % 10.4; HGB 12.6 g/dL (13.5-17.5); Lymphocytes % 14.3; Mean Corp. HGB Concentration 34.1 g/dL (32.0-36.0); Mean Corpuscular Volume 90.9 fL (80-95); Monocytes % 14.9; Neutrophils % 58.8; Platelet Count 188 x1000/uL (130-400); RBC 4.07 m/cumm (4.50-6.00); RBC Distribution Width 15.6 % (11.8-14.1); White Blood Cell Count 6.76 k/cumm (4.4-10.8)
[2017-11-26 07:25] VITALS: BP 145/90; PULSE 65; RESP 19; TEMP 36.5; O2SAT 96
[2017-11-26] MEDS: Electrolyte SOLUTION,ORAL 1000 ML BTL 480 ML PO ×2 (07:37→17:07)
[2017-11-26] MEDS: Tamsulosin 0.4 MG CAPCR PO (07:38)
[2017-11-26] MEDS: Magnesium Oxide 400 MG TAB 600 MG PO ×2 (07:38→19:35)
[2017-11-26] MEDS: Aspirin E.C. 81 MG TABEC PO (07:38)
[2017-11-26] MEDS: Lactobacillus Acidophilus CAP 1 CAP PO ×2 (07:38→19:34)
[2017-11-26 07:42] LABS: Anion Gap 7.6 mmol/L (3-11); BUN 15 mg/dL (7-18); CO2 27.4 mmol/L (21.0-32.0); CREATININE 1.74 mg/dL (0.70-1.30); Calcium 9.8 mg/dL (8.5-10.1); Chloride 107 mmol/L (98-107); Estimated GFR 39.21 (mL/min/1.73m2); Glucose 84 mg/dL (70-100); Sodium 142 mmol/L (136-145)
--- NOTE | 2017-11-26 10:58 | PDOC.CMPRO ---
Care Management Progress Note S/O: Jacobo was ambulating the hallways independently with his . He reported no concerns at this time. A: 67 year old male admitted to [facility] 11/23/17 for Bactremia of unknown origin P: Jacobo will return home with his , Darlin when medically ready per MD. Dr. Britton reports he anticipates Jacobo remaining at [facility] at least one more night for continued monitoring.
--- NOTE | 2017-11-26 11:06 | CMPROGNOTE_ITS ---
Care Management Progress Note S/O: Jacobo was ambulating the hallways independently with his . He reported no concerns at this time. A: 67 year old male admitted to [facility] 11/23/17 for Bactremia of unknown origin P: Jacobo will return home with his , Darlin when medically ready per MD. Dr. Britton reports he anticipates Jacobo remaining at [facility] at least one more night for continued monitoring.
[2017-11-26 11:30] VITALS: BP 128/87; PULSE 76; RESP 19; TEMP 36.6; O2SAT 98
[2017-11-26] MEDS: Lactated Ringers 1,000 ML 125 ML IV (14:36)
[2017-11-26 16:21] VITALS: BP 131/83; PULSE 66; RESP 18; TEMP 36.5; O2SAT 97
--- NOTE | 2017-11-26 17:04 | PGE_ITS ---
DATE OF SERVICE: November 26, 2017 ASSESSMENT AND PLAN: #1. E. coli bacteremia. Patient with evidence of E. coli bacteremia with unknown source. Beaui ng to note that the patient's blood cultures were all positive at the time of his symptoms of fevers and rigors, but by the time of his admission blood cultures drawn prior to antibiotic administration remained negative. Unsure if this was a transient bacteremia, but regardless, there is no known sour ce at this time. The patient's urinalysis was negative upon initial evaluation and despite mild janessa nephric fat stranding, nothing was abnormal in the ultrasound and now the urinalysis remains negative . The case was discussed with Infectious Disease and although the source is not quite apparent, and GI sources are both possible in a patient with prior history of ileostomy. CT scanning with IV contr ast was recommended but contraindicated due to acute kidney injury. Mr. Abel received three full days of Zosyn, and is currently on day #2 of Levaquin therapy. Will u ltimately decide the length of course of antibiotic regimen following discussion with ID. Will monit or for an additional day prior to discharge to allow for further improvement in kidney function. #2. Acute kidney injury. Evidence of acute renal insufficiency in the setting of an infection and d ehydration, although with potential mild perinephric stranding seen on CT that was not confirmed by u ltrasound. Continue IV fluid resuscitation. Continue renally-dosed medications when applicable. Patient also h as an ostomy in place and reports decreased urine output depending on dietary changes. Continue IV f luid resuscitation at this time. #3. Abnormal imaging of the kidney. Patient with potential evidence of a <1-cm right-sided renal co rtical lesion at the medial upper lobe with recommendation for renal ultrasound to exclude solid mass . Renal ultrasound performed and unremarkable for stone, mass, or hydronephrosis of the right kidney , but did show an exophytic focus of the left upper lobe consistent with a cyst. No evidence for hyd ronephrosis on either side. #4. COPD - appears quiescent. Continue home LAMA inhaler and p.r.n. albuterol. #5. Prophylaxis. Continue subcutaneous heparin. #6. Code status - FULL CODE. SUBJECTIVE: Dshnd-cfgxy-ovar-old pleasant man with a past medical history significant for COPD, pros hathaway CA, and prior ileostomy who was admitted on 11/23/17 due to positive blood cultures, subsequent E. coli bacteremia. Mr. Abel had initial onset of fevers and rigors at home, seen in the Emergency Department the day p rior to his admission. At that time his urinalysis, chest x-ray, and lab work were initially negativ e. Blood cultures were also drawn, by the next day returned positive with gram-negative sharon bacterem ia in all bottles. The patient was called and asked to return back for reevaluation. At that time, Mr. Abel felt vastly improved with resolution of his fevers, but was found to have a white count th at was significantly elevated and he was admitted. Since that time, Mr. Abel remains well and afebrile, blood cultures having speciated to E. coli, wh ich is essentially pansensitive with resistance to penicillin only. His white count has completely n ormalized and remains that way. He was initially started on Zosyn, changed to levofloxacin based on culture results. Source for his infection is currently unknown, and other than very mild perinephric fat stranding on CT, which was not duplicated by ultrasound, the patient has no signs or infection a nywhere. Source remains likely GI or . No events were reported overnight. The patient remains af ebrile. PHYSICAL EXAM: General: The patient appears quite comfortable, sitting out of bed in chair, no acute distress noted . Vitals: Temperature 36.5 and afebrile. Blood pressure 145/90. Heart rate 65. Pulse oximetry 96% o n room air. Neck: Supple. CV: Regular, non-tachycardic. Pulm: Continued minimal left-sided basilar crackles which continue to improve with deep inspiration and cough. Abdomen: Bowel sounds present, soft, nontender, nondistended. Vascular: No significant lower extremity edema noted. LABS: Normal sodium, potassium, chloride and bicarb. Creatinine has improved to 1.74 from 1.9 and 2 .01 yesterday. CBC with continued improvement in white count at 6.76. Hemoglobin 12.6 and stable. Platelet count o f 188,000 with a normal differential. Microbiology with no growth x48 hours on blood cultures collected on the at the time of admission , but blood cultures from the 7th growing E. coli in all bottles.
[2017-11-26 19:27] VITALS: BP 153/90; PULSE 71; RESP 18; TEMP 36.9; O2SAT 93
[2017-11-26] MEDS: Ibuprofen 400 MG TAB PO (19:34)
[2017-11-26] MEDS: clonazePAM 0.5 MG TAB PO (21:14)
[2017-11-27] MEDS: Heparin 5,000 UNITS/ML VIAL 5000 UNITS SC ×2 (02:00→11:05)
[2017-11-27] MEDS: clonazePAM 0.5 MG TAB (02:01)
[2017-11-27] MEDS: Acetaminophen 325 MG TAB PO (02:09)
[2017-11-27 04:27] VITALS: BP 167/91; PULSE 64; RESP 18; TEMP 36; O2SAT 97
[2017-11-27] MEDS: Normal Saline Flush 10 ML SYR IVP (06:38)
[2017-11-27] MEDS: Lactated Ringers 1,000 ML 125 ML IV (07:12)
[2017-11-27 07:30] LABS: Abs Immature Grans 0.33 k/cumm (0.0-0.09); HCT 36.9 % (40.0-50.0); HGB 12.7 g/dL (13.5-17.5); Mean Corp. HGB Concentration 34.4 g/dL (32.0-36.0); Mean Corpuscular Hemoglobin 31.1 pg (27.0-33.0); Mean Corpuscular Volume 90.4 fL (80-95); Mean Platelet Volume 9.6 fL (8.0-11.0); Platelet Count 217 x1000/uL (130-400); RBC 4.08 m/cumm (4.50-6.00); RBC Distribution Width 15.4 % (11.8-14.1); White Blood Cell Count 6.63 k/cumm (4.4-10.8)
[2017-11-27 07:42] LABS: BUN 13 mg/dL (7-18); CREATININE 1.65 mg/dL (0.70-1.30); Calcium 9.5 mg/dL (8.5-10.1); Chloride 108 mmol/L (98-107); Estimated GFR 41.69 (mL/min/1.73m2); Glucose 82 mg/dL (70-100); Potassium 3.8 mmol/L (3.5-5.1); Sodium 142 mmol/L (136-145)
[2017-11-27 07:45] VITALS: O2SAT 96
[2017-11-27 07:56] LABS: Absolute Neutrophil Count 3.51 k/cumm (1.2-6.7)
[2017-11-27 07:57] LABS: Absolute Eosinophil Count 0.66 k/cumm (0.0-0.7); Absolute Lymphocyte Count 1.46 k/cumm (1.2-3.4); Anisocytosis 1+; Diff Comment Manual Differential; Polychromasia Present
[2017-11-27 08:22] VITALS: BP 147/81; PULSE 70; RESP 15; TEMP 36.1; O2SAT 97
[2017-11-27] MEDS: Lactobacillus Acidophilus CAP 1 CAP PO (08:53)
[2017-11-27] MEDS: Aspirin E.C. 81 MG TABEC PO (08:53)
[2017-11-27] MEDS: Tamsulosin 0.4 MG CAPCR PO (08:53)
[2017-11-27] MEDS: Electrolyte SOLUTION,ORAL 1000 ML BTL 480 ML PO (08:54)
[2017-11-27] MEDS: Magnesium Oxide 400 MG TAB 600 MG PO (09:09)
[2017-11-27 10:29] VITALS: BP 132/83; PULSE 74; RESP 15; TEMP 36.3; O2SAT 98
--- NOTE | 2017-11-27 11:53 | DISCHARGE ---
Discharge - Discharge Orders Referrals: Jacobo Burnett MD [Primary Care Provider] - 12/04/17 10:30 am Other Amb Orders: Basic Metabolic Panel [LAB] Time Frame: 3 Days, Location: Determined By Patient - Discharge Plan Disposition: HOME Condition: Improving Diet:: Normal Diet Equipment/Supplies:: No Equipment Needed Activity:: No Strenuous Activity - Instructions Additional Instructions: Please finish your antibiotics. For now you will be taking one pill every other day over the next week. If your kidney function improves your primary provider may change the dosing. Please return to the hospital or contact your doctor if you have recurrence of your fevers. See your primary doctor within a week, and have blood work done in 3 days.
--- NOTE | 2017-11-27 12:21 | PDOC.CMDIS ---
Date of Service: 11/27/17 Time of Service: 12:21 LACE Index Scoring Tool - Questions: Length of Stay (in days): 4 - 6 Acuity (Admit via E.D.?): Yes E.D. Visits: 2 - Answers: Total Score: 9 Risk of Readmission: Low Risk Care Management Discharge Reason for Hospitalization: Bacteremia Discharge Plan: Pt to return home today with no services. Pts Darlin to transport and Pt to F/U with PCP upon DC. Patient/Family Education Needs: Review DC instructions, any limitations, Ask Me Three
--- NOTE | 2017-11-27 16:53 | DSE_ITS ---
DATE OF ADMISSION: November 23, 2017 DATE OF DISCHARGE: November 27, 2017 PRIMARY CARE PHYSICIAN: Jacobo Burnett M.D. ADMITTING PHYSICIAN: Jose Elias Macdonald M.D. DISCHARGING PHYSICIAN: Mayco Britton M.D. DISCHARGE DIAGNOSIS: 1. E. coli bacteremia of unknown source. 2. Acute kidney injury. CHIEF COMPLAINT: Fevers, rigors, bacteremia. HISTORY OF PRESENT ILLNESS: Pleasant 67-year-old man with past medical history significant for an il eostomy performed approximately twenty years ago and still in place, COPD, and prior prostate cancer, presents to [facility] due to positive blood cultures. Mr. Abel had initially presented to the Emergency Department the day prior to his admission, when kathy mathews suddenly developed fevers and rigors at home. Upon presentation to the Emergency Department he was found to be febrile, but with a normal white blood count and benign exam. A CT of the abdomen and p shazia showed potential mild perinephric stranding that had been present on prior CT scans, and his ur inalysis was negative. A chest x-ray was also normal. Blood cultures were obtained and the patient was discharged home. The following day, blood cultures turned back positive for gram negative rods. He was called at home and instructed to return to the hospital. At that point he said that the fevers and rigors had reso lved and that he felt well and back to his baseline. However, his white blood count showed a signifi cant leukocytosis with a white count of 26,000 with 11% bands. At that time the patient was admitted for further evaluation and treatment. PAST MEDICAL HISTORY: 1. Prior history of small bowel obstruction. 2. Hypomagnesemia. 3. Hypokalemia. 4. History of detached retina. 5. Status post ileostomy. 6. Hypertension. 7. Hyperlipidemia. 8. Asthma. 9. Peptic ulcer disease. 10. History of ulcerative colitis. 11. GERD. 12. Anxiety. 13. History of prostate CA. 14. Migraines. 15. COPD. ALLERGIES: 1. Ciprofloxacin with agitation. 2. Sulfa. DISCHARGE MEDICATIONS: 1. Aspirin 81 mg daily. 2. MVI one tablet daily. 3. Vitamin C 500 daily. 4. Flomax 0.4 mg q.p.m. 5. Cialis 10 mg p.o. p.r.n. 6. Sucralfate 1 gram. 7. Tudorza one puff b.i.d. 8. Claritin D one tablet p.r.n. 9. Potassium chloride 10 mEq daily. 10. Magnesium oxide 800 mg daily. 11. Clonazepam 0.25 mg q.h.s. 12. Ondansetron 4 mg q6 p.r.n. 13. Acetaminophen 650 mg q6 p.r.n. 14. Culturelle capsule, one capsule daily. 15. Levofloxacin 750 mg every other day for one additional week. PHYSICAL EXAM: GENERAL: Patient appears quite well, sitting up out of bed in chair. No acute distress noted. VITALS: Temperature 36.3 and afebrile, blood pressure 132/83, heart rate 74, pulse oximetry 98% on r oom air. NECK: Supple. CV: Regular, non-tachycardic. PULM: Continued minimal left-sided basilar crackles; otherwise no crackles, rhonchi or wheezing. ABDOMEN: Bowel sounds are present; it's soft, nontender, nondistended; ostomy in place. VASCULAR: No significant lower extremity edema noted. LABS: Basic Metabolic Panel essentially normal with the exception of a creatinine of 1.65; elevated creatin ine up to 2.01 on 11/24/2017, downtrended to 1.9, 1.74 and 1.65 today. Baseline in 2013 had been 1 to 1.2, previously checked November 14, 2016 of 1.33. CBC with a normalized white blood count at 6.63, down from an initial value of 26.71; with an initial 11% bandemia. Hemoglobin 12.7, platelet count of 217,000; 50% neutrophils, 22% lymphocytes, 12% mon ocytes. Blood cultures from 11/23/2017 with no growth x72 hours. Blood cultures from 11/22/2017 growing E. coli in all bottles, resistant to Ampicillin and Augmentin, otherwise romero sensitive. STUDIES: 1. Chest x-ray performed 11/22/2017: No evidence of acute disease. 2. CT of the abdomen and pelvis performed 11/22/2017: Right lower quadrant ileostomy with parastomal h ernia containing non-obstructive small bowel; mild bilateral perinephric fat stranding. New, <1 cm i n diameter renal cortical lesion. Ultrasound recommended. 3. Renal ultrasound performed 11/24/2017: Unremarkable kidneys; no evidence of hydronephrosis or perin ephric collection. Mildly elevated post-void residual. HOSPITAL COURSE BY PROBLEM LIST: 1. E. coli bacteremia. Patient with evidence of E. coli bacteremia with unknown source. Interesting ly the patient's blood cultures were all positive at the time of his symptoms of fevers and rigors at initial presentation to the Emergency Department on the , but by the time of his admission on the following day, his blood cultures drawn prior to antibiotic administration, remained negative throug hout his hospital course. Potentially this may have been a transient bacteremia, but with positivity of all bottles and gram negative bacteremia, recommendations are for completion of a fourteen day an tibiotic regimen. Initially the patient was maintained on three full days of Zosyn prior to speciation and sensitivity availability for the E. coli, and then switched to renally-dosed Levaquin. Current creatinine cleara nce appears to be between 20 and 49, making this medication and [id number] dosing. Plans will b e for a repeat Basic Metabolic Panel within 3 days, and readjustment of his dose as an outpatient by his primary care physician. Of note, the entirety of the workup for the patient's potential bacteremia was negative, but assumed to be GI or in origin. 2. Acute kidney injury. Evidence of acute renal insufficiency in the setting of infection and dehydr ation. There was mention of potential mild perinephric stranding seen on CT - this was reviewed with the radiologist in person and appears that this stranding has been present on prior imaging and like ly non-pathological. Patient was IV fluid-resuscitated, nephrotoxins avoided and medications appropriately renally-dosed. Creatinine has been slow to recover, but has been downtrending daily now for over three days. Recom mend continued hydration and avoidance of strenuous activity and dehydration, with a repeat Basic Met abolic Panel to be performed in three days. Levaquin is currently renally-dosed, as above. 3. Abnormal imaging of the kidney. Patient with potential evidence of <1 cm left-sided renal cortica l lesion, which appears to be a cyst by ultrasound. This was also reviewed with the radiologist. N o evidence of hydronephrosis on either side. 4. Elevated post-void residual. Patient with evidence of a potential elevated amount of post-void re sidual by ultrasound, and in the setting of acute kidney injury it's been slower to recover, and a hi story of prostate CA - would recommend outpatient workup of potential enlargement of the prostate to ensure lack of significant pathology, and potentially further treatment of prostatic enlargement. Sh ould be monitored over time. 5. COPD. Quiescent during hospital course. The patient was maintained on his LAMA inhaler, with p.r .n. Albuterol. 6. DISPOSITION. The patient is being discharged in stable condition with follow-up with his PCP over the next week. Over 40 minutes were spent on coordination of today's discharge.
== END 2017-11-27 14:25 | disposition home or self-care (01) | DRG 872 ==
PROVIDERS: Admitting Provider Family Medicine; Emergency Provider Student in an Organized Health Care Education/Training Program; PCP General Practice; Visit Provider Internal Medicine
DX: R78.81 Bacteremia (principal); N17.9 Acute kidney failure, unspecified; B96.20 Unspecified Escherichia coli [E. coli] as the cause of diseases classified elsewhere; R93.8 Abnormal findings on diagnostic imaging of other specified body structures; R33.9 Retention of urine, unspecified; E87.6 Hypokalemia; E86.0 Dehydration; E83.42 Hypomagnesemia; J44.9 Chronic obstructive pulmonary disease, unspecified; Z85.46 Personal history of malignant neoplasm of prostate; Z93.2 Ileostomy status; I10 Essential (primary) hypertension; E78.5 Hyperlipidemia, unspecified; K21.9 Gastro-esophageal reflux disease without esophagitis; Z88.1 Allergy status to other antibiotic agents
CPT/HCPCS: 36415 ×4; 80048 ×4; 80053; 83735; 85025 ×5; 87040 ×2; 76770; 99284; 96365; 99222; 99232 ×3; 99239; J1650; J1644 ×9; J2543 ×4; J1956; 99285; J3490

== ENCOUNTER 2018-11-25 02:17 | Outpatient (CLI) | payer MEDICARE, SELFPAY ==
[2018-11-25 08:50] LABS: Anion Gap 10.6 mmol/L (3-11); BUN 20 mg/dL (7-18); CO2 28.4 mmol/L (21.0-32.0); CREATININE 1.45 mg/dL (0.70-1.30); Chloride 101 mmol/L (98-107); Cholesterol 215 mg/dL (50-200); Estimated GFR 48.25 (mL/min/1.73m2); Glucose 103 mg/dL (70-100); HDL Cholesterol 35 mg/dL (40-60); Magnesium 1.9 mg/dL (1.8-2.4); Potassium 3.7 mmol/L (3.5-5.1); Sodium 140 mmol/L (136-145); Triglyceride 558 mg/dL (30-150)
[2018-11-25 09:04] LABS: LDL CHOLESTEROL 70 mg/dL (<100)
[2018-11-25 12:34] LABS: Vitamin B12 228 pg/mL (193-986)
== END 2018-11-25 02:37 ==
PROVIDERS: PCP General Practice; Visit Provider General Practice
DX: G60.9 Hereditary and idiopathic neuropathy, unspecified (principal); R19.7 Diarrhea, unspecified; Z93.2 Ileostomy status
CPT/HCPCS: 36415; 80051; 80061; 82947; 83721; 84520; 82565; 82607; 83735

== ENCOUNTER 2019-07-09 07:15 | Outpatient (CLI) | payer MEDICARE, OTHER, SELFPAY ==
[2019-07-09 08:46] LABS: Calculated LDL 151 mg/dL; Cholesterol 266 mg/dL (<200); HDL Cholesterol 43 mg/dL (40-60); Triglyceride 360 mg/dL (<150)
== END 2019-07-09 07:35 ==
PROVIDERS: PCP Family Medicine; Visit Provider Family Medicine
DX: E78.5 Hyperlipidemia, unspecified (principal)
CPT/HCPCS: 36415; 80061

== ENCOUNTER 2019-12-02 16:48 | Outpatient (REF) | payer MEDICARE, OTHER, SELFPAY ==
[2019-12-02 18:58] LABS: Iron 77 ug/dL (65-175); Total Iron Binding Capacity 332 ug/dL (250-450); Transferrin Sat 23 % (20-55)
[2019-12-02 19:03] LABS: Anion Gap 11.3 mmol/L (3-11); BUN 41 mg/dL (7-18); CO2 26.7 mmol/L (21.0-32.0); Calcium 8.8 mg/dL (8.5-10.1); Calculated LDL 79 mg/dL (<100); Chloride 98 mmol/L (98-107); Cholesterol 206 mg/dL (<200); Estimated GFR 12.82 (mL/min/1.73m2); Glucose 94 mg/dL (74-106); HDL Cholesterol 50 mg/dL (40-60); Magnesium 2.1 mg/dL (1.8-2.4); Potassium 3.4 mmol/L (3.5-5.1); Sodium 136 mmol/L (136-145); Triglyceride 389 mg/dL (<150)
[2019-12-02 21:14] LABS: CREATININE 4.56 mg/dL (0.70-1.30)
== END 2019-12-02 17:08 ==
LOC: LBO 16:48
PROVIDERS: PCP Family Medicine; Visit Provider Family Medicine
DX: G25.81 Restless legs syndrome (principal); E78.5 Hyperlipidemia, unspecified; N18.9 Chronic kidney disease, unspecified
CPT/HCPCS: 80048; 80061; 83540; 83550; 83735

== ENCOUNTER 2019-12-08 01:33 | Outpatient (CLI) | payer MEDICARE, OTHER, SELFPAY ==
[2019-12-08 13:26] LABS: Anion Gap 12.1 mmol/L (3-11); BUN 34 mg/dL (7-18); CO2 27.9 mmol/L (21.0-32.0); CREATININE 2.77 mg/dL (0.70-1.30); Calcium 9.2 mg/dL (8.5-10.1); Chloride 93 mmol/L (98-107); Glucose 95 mg/dL (74-106); Sodium 133 mmol/L (136-145)
[2019-12-08 13:30] LABS: Potassium 2.9 mmol/L (3.5-5.1)
== END 2019-12-08 01:53 ==
PROVIDERS: PCP Family Medicine; Visit Provider Family Medicine
DX: N17.9 Acute kidney failure, unspecified (principal)
CPT/HCPCS: 36415; 80048

== ENCOUNTER 2019-12-15 03:06 | Outpatient (CLI) | payer MEDICARE, OTHER, SELFPAY ==
[2019-12-15 12:32] LABS: Anion Gap 8.9 mmol/L (3-11); BUN 34 mg/dL (7-18); CO2 28.1 mmol/L (21.0-32.0); CREATININE 2.24 mg/dL (0.70-1.30); Calcium 9.3 mg/dL (8.5-10.1); Chloride 97 mmol/L (98-107); Estimated GFR 29.13 (mL/min/1.73m2); Glucose 91 mg/dL (74-106); Potassium 4.3 mmol/L (3.5-5.1); Sodium 134 mmol/L (136-145)
== END 2019-12-15 03:26 ==
PROVIDERS: PCP Family Medicine; Visit Provider Family Medicine
DX: E87.6 Hypokalemia (principal)
CPT/HCPCS: 36415; 80048

== ENCOUNTER 2020-12-22 02:29 | Outpatient (CLI) | payer MEDICARE, OTHER, SELFPAY ==
[2020-12-22 10:00] LABS: Anion Gap 11.9 mmol/L (3-11); BUN 16 mg/dL (7-18); CO2 24.1 mmol/L (21.0-32.0); CREATININE 1.6 mg/dL (0.70-1.30); Calcium 9.6 mg/dL (8.5-10.1); Chloride 102 mmol/L (98-107); Estimated GFR 42.82 (mL/min/1.73m2); Glucose 94 mg/dL (74-106); Potassium 5.1 mmol/L (3.5-5.1); Sodium 138 mmol/L (136-145)
== END 2020-12-22 02:30 | disposition home or self-care (01) ==
LOC: LBO 02:29
PROVIDERS: PCP Family Medicine; Visit Provider Family Medicine
DX: N17.9 Acute kidney failure, unspecified (principal); N18.9 Chronic kidney disease, unspecified
CPT/HCPCS: 36415; 80048

== ENCOUNTER 2021-12-22 04:17 | Outpatient (CLI) | payer MEDICARE, SELFPAY ==
[2021-12-22 12:08] LABS: Anion Gap 9.9 mmol/L (3-11); BUN 14 mg/dL (7-18); CO2 25.1 mmol/L (21.0-32.0); CREATININE 1.4 mg/dL (0.70-1.30); Calcium 9.6 mg/dL (8.5-10.1); Chloride 98 mmol/L (98-107); Estimated GFR 49.82 (mL/min/1.73m2); Glucose 96 mg/dL (74-106); Potassium 4.2 mmol/L (3.5-5.1); Sodium 133 mmol/L (136-145)
[2021-12-23 10:19] LABS: Hepatitis C Ab w Rflx HCV PCR Negative (Negative)
[2021-12-23 10:26] LABS: HIV-1/2 Ag & Ab Screen Negative (Negative)
== END 2021-12-22 04:18 | disposition home or self-care (01) ==
LOC: LBO 04:17
PROVIDERS: PCP Family Medicine; Visit Provider Family Medicine
DX: N18.9 Chronic kidney disease, unspecified (principal); Z11.3 Encounter for screening for infections with a predominantly sexual mode of transmission; Z11.4 Encounter for screening for human immunodeficiency virus [HIV]; Z11.59 Encounter for screening for other viral diseases
CPT/HCPCS: 36415; 80048; 86803; 87389

== ENCOUNTER 2022-07-25 03:41 | Outpatient (CLI) | payer MEDICARE, SELFPAY ==
[2022-07-25 09:44] LABS: Calculated LDL 125 mg/dL (<100); Cholesterol 239 mg/dL (<200); HDL Cholesterol 77 mg/dL (40-60); Triglyceride 186 mg/dL (<150)
== END 2022-07-25 03:42 | disposition home or self-care (01) ==
PROVIDERS: PCP Family Medicine; Visit Provider Family Medicine
DX: E78.5 Hyperlipidemia, unspecified (principal)
CPT/HCPCS: 36415; 80061

== ENCOUNTER 2023-04-10 03:01 | Outpatient (CLI) | payer MEDICARE, SELFPAY ==
[2023-04-10 10:03] LABS: Anion Gap 8.5 mmol/L (3-11); BUN 17 mg/dL (7-18); CO2 25.5 mmol/L (21.0-32.0); CREATININE 1.4 mg/dL (0.70-1.30); Calcium 9.6 mg/dL (8.5-10.1); Chloride 102 mmol/L (98-107); Estimated GFR 53.07 (mL/min/1.73m2); Glucose 97 mg/dL (74-106); Potassium 4.3 mmol/L (3.5-5.1); Sodium 136 mmol/L (136-145)
== END 2023-04-10 03:02 | disposition home or self-care (01) ==
LOC: LBO 03:01
PROVIDERS: PCP Family Medicine; Visit Provider Family Medicine
DX: N18.9 Chronic kidney disease, unspecified (principal)
CPT/HCPCS: 36415; 80048

== ENCOUNTER 2024-02-07 03:49 | Outpatient (CLI) | payer MEDICARE, SELFPAY ==
[2024-02-07 09:18] LABS: Anion Gap 7.7 mmol/L (3-11); BUN 19 mg/dL (7-18); CO2 27.3 mmol/L (21.0-32.0); CREATININE 1.4 mg/dL (0.70-1.30); Calcium 9.4 mg/dL (8.5-10.1); Chloride 99 mmol/L (98-107); Estimated GFR 52.74 (mL/min/1.73m2); Glucose 105 mg/dL (74-106); Sodium 134 mmol/L (136-145); Vitamin B12 186 pg/mL (193-986)
== END 2024-02-07 03:50 | disposition home or self-care (01) ==
LOC: LBO 03:49
PROVIDERS: PCP Family Medicine; Visit Provider Family Medicine
DX: N18.9 Chronic kidney disease, unspecified (principal); Z93.2 Ileostomy status
CPT/HCPCS: 36415; 80048; 82607

== ENCOUNTER 2024-03-26 04:45 | Outpatient (CLI) | payer MEDICARE, SELFPAY ==
[2024-03-26 13:54] LABS: Anion Gap 14.6 mmol/L (3-11); BUN 15 mg/dL (7-18); CO2 20.4 mmol/L (21.0-32.0); CREATININE 1.3 mg/dL (0.70-1.30); Calcium 9.5 mg/dL (8.5-10.1); Chloride 106 mmol/L (98-107); Estimated GFR 57.65 (mL/min/1.73m2); Glucose 83 mg/dL (74-106); Potassium 4.2 mmol/L (3.5-5.1); Sodium 141 mmol/L (136-145)
== END 2024-03-26 04:46 | disposition home or self-care (01) ==
LOC: LBO 04:45
PROVIDERS: PCP Family Medicine; Visit Provider Family Medicine
DX: I10 Essential (primary) hypertension (principal)
CPT/HCPCS: 36415; 80048

== ENCOUNTER 2024-10-16 11:36 | Outpatient (CLI) | payer MEDICARE, SELFPAY ==
[2024-10-16 11:24] LABS: Abs Immature Grans 0.11 10^3/uL (0.0-0.06); Absolute Eosinophil Count 0.22 10^3/uL (0.0-0.7); Absolute Monocyte Count 2.13 10^3/uL (0.1-0.8); Basophils % 0.6 %; Eosinophils % 1.8 %; HCT 43.3 % (40.0-50.0); HGB 14.4 g/dL (13.5-17.5); Immature Grans % 0.9 %; Lymphocytes % 4.5 %; MCH 31.2 pg (27.0-33.0); MCHC 33.3 % (32.0-36.0); MCV 94 fL (80-95); MPV 8.7 fL (8.0-11.0); Monocytes % 17.3 %; Neutrophils % 74.9 %; Platelet Count 389 10^3/uL (130-400); RBC 4.61 10^6/uL (4.36-5.78); RDW 12.6 % (11.8-14.1); RDW-SD 43.5 fL; WBC 12.31 10^3/uL (4.4-10.8)
[2024-10-16 11:26] LABS: ESR 24 mm/hr (0-20)
[2024-10-16 11:29] LABS: Absolute Basophil Count 0.07 10^3/uL (0.0-0.2); Absolute Lymphocyte Count 0.55 10^3/uL (1.2-3.4); Absolute Neutrophil Count 9.22 10^3/uL (1.2-6.7)
[2024-10-16 11:51] LABS: Diff Comment Diff Reviewed; RBC Morphology Normal
[2024-10-16 12:01] LABS: ALT 22 U/L (16-63); AST 20 U/L (15-37); Albumin 2.7 g/dL (3.4-5.0); Alkaline Phosphatase 139 U/L (46-116); Anion Gap 9.4 mmol/L (3-11); BUN 16 mg/dL (7-18); Bilirubin, Total 0.5 mg/dL (0.2-1.0); C-Reactive Protein 11.56 mg/dL (<or=0.5); CO2 25.6 mmol/L (21.0-32.0); CREATININE 1.1 mg/dL (0.70-1.30); Calcium 9.8 mg/dL (8.5-10.1); Chloride 102 mmol/L (98-107); Estimated GFR 70.01 (mL/min/1.73m2); Glucose 101 mg/dL (74-106); Potassium 4.7 mmol/L (3.5-5.1); Sodium 137 mmol/L (136-145); Total Protein 7.4 g/dL (6.4-8.2)
[2024-10-17 10:05] LABS: Cyclic Citrullinated Peptide <2.5 U/mL (<5.0)
[2024-10-17 11:45] LABS: ANA Interpretation Negative (Negative)
[2024-10-17 11:49] LABS: Lyme Ab w Rflx to Lyme Confirm Negative (Negative)
[2024-10-19 21:34] LABS: Anaplasma phagocytophilum Negative (Negative); B. miyamotoi PCR Negative (Negative); Babesia divergens/MO-1 Negative (Negative); Babesia duncani Negative (Negative); Babesia microti Negative (Negative); Ehrlichia chaffeensis Negative (Negative); Ehrlichia ewingii/canis Negative (Negative); Ehrlichia muris eauclairensis Negative (Negative)
== END 2024-10-16 11:37 | disposition home or self-care (01) ==
LOC: LBO 11:39
PROVIDERS: PCP Family Medicine; Visit Provider Family Medicine
DX: M19.90 Unspecified osteoarthritis, unspecified site (principal); E53.8 Deficiency of other specified B group vitamins
CPT/HCPCS: 36415; 80053; 85652; 86200; 87798; 85025; 86038; 86140; 86618